=== PATIENT | female | born 1970 | race American Indian/Alaskan Native ===

== ENCOUNTER 2016-07-19 21:54 | Emergency (ER) | payer OTHER, MEDICAID ==
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
[2016-07-20] MEDS ORDERED: MOTRIN PO ONE (04:09)
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
[2016-07-20 05:58] VITALS: BP 134/89
== END 2016-07-20 05:58 | disposition home or self-care (01) ==
LOC: ED 21:54
DX: S13.4XXA Sprain of ligaments of cervical spine, initial encounter (principal); S39.012A Strain of muscle, fascia and tendon of lower back, initial encounter; R51 Headache; V43.52XA Car driver injured in collision with other type car in traffic accident, initial encounter; Y93.89 Activity, other specified; Y99.8 Other external cause status; Y92.488 Other paved roadways as the place of occurrence of the external cause
CPT/HCPCS: 70450; 72131